=== PATIENT | female | born 2000 | race African-American/Black ===

== ENCOUNTER 2025-08-29 14:20 | Outpatient (CLI) | payer BC, SELFPAY ==
[2025-08-29 16:19] LABS: Trichomonas No Trichomonas Seen (None Seen)
== END 2025-08-29 14:21 | disposition home or self-care (01) ==
PROVIDERS: PCP Family Medicine; Visit Provider Family Medicine
DX: N89.8 Other specified noninflammatory disorders of vagina (principal); Z02.1 Encounter for pre-employment examination
CPT/HCPCS: 86480; 87210